=== PATIENT | male | born 1995 | race Caucasian/White ===

== ENCOUNTER 2021-11-10 15:16 | Emergency (ER) | payer OTHER, SELFPAY ==
[2021-11-10 15:22] VITALS: BP 138/70; PULSE 70; RESP 16; TEMP 37.1; O2SAT 100; BMI 28.5
--- NOTE | 2021-11-10 16:41 | ED_ITS ---
HPI - Wound/Laceration General Chief Complaint: Wound/Laceration Stated Complaint: lip forehead lac Time Seen by Provider: 11/10/21 16:41 Source: patient and RN notes reviewed Mode of arrival: ambulatory Limitations: no limitations History of Present Illness HPI narrative: Laceration to left forehead and left upper lip. occured greater than 12 hrs ago. pt slipped last night and hit head and lip on sharp part of car door. pt has mild MATIAS, but denies N/V, no LOC. Denies fever/chills Body four view annotation: 1. 2cm lac to left forehead 2. Related Data Previous Rx's Medication Instructions Recorded amoxicillin 875 mg-potassium 1 tab PO BID #14 tab 11/10/21 clavulanate 125 mg tablet (Augmentin) Allergies Allergy/AdvReac Type Severity Reaction Status Date / Time No Known Allergies Allergy Unverified 06/29/20 16:43 [No Known Allergies*] Review of Systems Verdana 4l Review of Systems: Verdana 4d Verdana 4d Constitutional , No Weight loss, No Fever, No Chills, ENT/Mouth : No Hearing loss, No Ear Pain, No Nasal Congestion, No Sinus Pain, No Hoarseness, No sore throat, No Rhinorrhea, No Swallowing Difficulty Cardiovascular : No Chest Pain, No SOBSOB Respiratory : No Cough, No Dyspnea Gastrointestinal : No Nausea, No Vomiting, No Diarrhea, No abdominal Pain, Genitourinary : No Dysuria, No Urinary Frequency, No Hematuria, No Urinary or Bowel Incontinence/retention? Musculoskeletal :No Back pain, No neck pain, No joint stiffness, No joint swelling Skin : lacerations to face Neuro : No Weakness, No radiation, No Numbness, No Paresthesias, mild headache, no loss of bowel or bladder incontinence, Psych : No SI/HI/thoughts of self injury Yes all other systems are reviewed and are negative [facility] Past Medical History Attestation statement: The following information was validated with the patient. Social History Social History Advance Directives: No Advance Directives Information Provided: No Physical Exam Verdana 4l Vital Signs: Verdana 4d Verdana 4d Vital Signs: Verdana 4d Verdana 4Bd Last Vital Signs Verdana 4d Flight Simulator Teacher New 4d Flight Simulator Teacher New 4d Temp 98.8 F 11/10/21 15:22 Flight Simulator Teacher New 4d Pulse 70 11/10/21 15:22 Teofilo Guerrero 4d Resp 16 11/10/21 15:22 BP 138/70 11/10/21 15:22 Pulse Ox 100 11/10/21 15:22 BMI result Body Mass Index 28.5 vital signs have been reviewed as normal and appeared to be correct.? Blood pressure mildy elevated.? Heart rate normal.? Respiration rate normal.? Temperature normal.? Oxygen saturation normal. Appearance: Alert. Oriented X3. No acute distress. ? Head: 3cm laceration to left forehead. 0.5cm left upper lip, does not cross the vermilion border. no active bleeding. No Dick signs noted. No raccoon eyes noted Eyes: PERRLA. EOMI. Conjunctiva and sclera normal. Eyelids normal. ? ENT: EAC normal. TMs Normal. Pharynx normal. Uvula midline. Moist mucous membranes. ? No trismus noted.? No drooling noted.? No muffled voice noted. small 2mm laceration to inside upper left lip Neck: Normal inspection. Neck supple. Normal ROM. No adenopathy. No meningeal signs. No neck mass noted. CVS: Normal heart rate and rhythm. Heart sound normal. No murmurs noted. Respiratory: No respiratory distress. Painless inspiration. Breath sounds normal. No wheezes/rales/rhonchi noted. Chest nontender. ? No accessory muscle usage noted or decreased air movement noted. Abdomen: Soft and nontender. Back: ?? Full range of motion noted. Skin: Skin warm and dry.? Normal skin color.? Normal skin turgor. No rashes/lesions/lacerations noted. Extremities: No lower extremity edema. ? Extremities exhibit normal range of motion.? Extremities nontender. Normal gait Neuro: Oriented X 3.? No motor deficit noted. No sensory deficit noted. Discharge Plan Discharge Clinical Impression: Laceration of forehead, Laceration of lip Patient Disposition: Home, Self-Care Instructions: Laceration Without Closure (ED), Facial Laceration (ED) Additional Instructions: Your lacerations were not sutured because they were greater than 12 hrs old. You are given a prescription for an antiobitic to help prevent infection of the laceration on the inside of your mouth. Follow up as needed. REturn if worse. Prescriptions: New amoxicillin-pot clavulanate [Augmentin] 875-125 mg tablet 1 tab PO BID Qty: 14 0RF Referrals: Physician,Unknown J [Primary Care Provider] - 2 days (pcp as needed) Interventions: ED Discharge Assessment Last Done: 11/10/21 17:06 Discharge Date/Time: 11/10/21 17:08
== END 2021-11-10 17:08 | disposition home or self-care (01) ==
PROVIDERS: Emergency Provider Emergency Medicine
DX: S01.81XA Laceration without foreign body of other part of head, initial encounter (principal); S01.511A Laceration without foreign body of lip, initial encounter; W01.198A Fall on same level from slipping, tripping and stumbling with subsequent striking against other object, initial encounter; Y93.89 Activity, other specified; Y92.810 Car as the place of occurrence of the external cause; Y99.9 Unspecified external cause status
CPT/HCPCS: 99283

== ENCOUNTER 2024-04-10 19:06 | Emergency (ER) | payer OTHER, SELFPAY ==
--- NOTE | ~2024-04-10 | XR_ITS ---
EXAMINATION: XR HAND/WRIST, LEFT CLINICAL INFORMATION: Rule out fracture. COMPARISON: None TECHNIQUE: PA, lateral, and oblique views of the left hand and wrist. FINDINGS: Examination demonstrates a mildly displaced, oblique fracture involving the mid diaphysis of the fourth metacarpal bone. There is also a mildly displaced, oblique fracture involving the distal metaphysis of the fifth metacarpal bone, probably extending to the ulnar aspect of the fifth MCP joint. Associated soft tissue swelling. No other fracture or dislocation is appreciated. Bony mineralization appears preserved. No lytic or sclerotic bony lesion is appreciated. The joint spaces otherwise appear maintained. XR/XR hand wrist LT IMPRESSION: Fractures of the fourth and fifth metacarpal bones.
[2024-04-10 19:19] VITALS: BP 123/72; PULSE 91; RESP 20; TEMP 36.6; O2SAT 99; BMI 24.3
[2024-04-10] MEDS: Ketorolac Tromethamine 30 MG/ML VIAL IM (21:48)
[2024-04-10 22:07] VITALS: BP 123/72; PULSE 91; RESP 20; TEMP 36.6; O2SAT 99
--- NOTE | 2024-04-10 22:12 | ED.EXTPRO ---
HPI - Extremity Problem General Chief complaint: Extremity Problem Stated complaint: left hand wound Time Seen by Provider: 04/10/24 21:18 Source: patient Mode of arrival: ambulatory Limitations: no limitations History of Present Illness ED Provider: Gómez HERNANDEZ HPI Narrative: 28-year-old male presents with complaints of left hand pain for the past hour so, patient hurt himself while playing baseball, after he does move his hand bent backwards since then has been having pain and swelling to his left 4th and 5th fingers. Worse with movement better at rest. No numbness or tingling. No previous issues with this hand. No other injuries sustained. Related Data Previous Rx's ?Medication ?Instructions ?Recorded amoxicillin 875 mg-potassium 1 tab PO BID #14 tabs 11/10/21 clavulanate 125 mg tablet (Augmentin) ketorolac 10 mg tablet 10 mg PO TID PRN pain 5 days #15 04/10/24 tabs Allergies Allergy/AdvReac Type Severity Reaction Status Date / Time No Known Allergies Allergy Verified 04/10/24 19:22 [No Known Allergies*] Review of Systems Review of Systems: Yes all other systems are reviewed and are negative [facility] Past Medical History Attestation statement: The following information was validated with the patient. Source: old records reviewed and nursing notes reviewed Social History Social History Smoked in Last 30 Days: No Advance Directives: No Advance Directives Information Provided: No Do you have a plan to hurt others: No Plan Physical Exam Vital Signs: Vital Signs: Last Vital Signs Temp 97.8 F 04/10/24 22:07 Pulse 91 04/10/24 22:07 Resp 20 04/10/24 22:07 BP 123/72 04/10/24 22:07 Pulse Ox 99 04/10/24 22:07 O2 Del Method Room Air 04/10/24 22:07 BMI result Body Mass Index 24.3 vss Appearance: Alert.? Oriented X3.? No acute distress.? Head: Normocephalic, atraumatic, no step-offs or deformities Eyes: Pupils equal, round and reactive to light.? ENT: Pharynx normal.? Neck: Normal inspection.? Neck supple.? CVS: Normal heart rate and rhythm.? Pulses normal.? Respiratory: No respiratory distress.? Breath sounds normal.? Abdomen: Soft and nontender.? Skin: Skin warm and dry.? Normal skin color.? Normal skin turgor.? Extremities: No lower extremity edema.? No calf ttp. 5/5 strength to bilateral upper and lower extremities+ swelling overlying the left 4th and 5th meta carpal region with some mild ecchymosis, full range of motion to all fingers however slight discomfort with range of motion of left 4th and 5th digits, mild discomfort with opposition and repositioning of the 4th and 5th fingers on the left hand. 2+ radial pulses. No wrist drop. Normal sensation distally. Capillary refill less than 2 seconds to bilateral upper extremities. 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 Neuro: Oriented X 3.? No motor deficit.? No sensory deficit. CN 2-12 intact Course Reevaluation(s) Reevaluation #1: Patient received Toradol for pain control. X-ray of left hand showing 4th and 5th metacarpal bone fractures. Patient placed in an ulnar gutter splint after placement of splint neurovascular status intact. Able to wiggle all fingers. Normal distal sensation. Patient will follow-up with the orthopedic team. Information given to him. Educated patient on diagnosis and treatment plan, answered all question, patient verbalizes understanding. At this time patient will be discharged home, advised to return with new or worsening symptoms. Educated on worrisome signs and symptoms and when to return. At this time I feel comfortable discharge home. Time: 22:15 Medications Administered Discontinued Medications Generic Name Dose Route Start Last Admin Trade Name Freq PRN Reason Stop Dose Admin Ketorolac Tromethamine 30 mg 04/10/24 21:38 04/10/24 21:48 Ketorolac Tromethamine 30 Mg/Ml Vial IM 04/10/24 21:39 30 mg ONCE ONE Administration Medical Decision Making Medical Decision Making [facility] Narrative: 28-year-old male presents with left hand pain status post baseball injury after his fingers bent backwards with sliding Physical exam 5/5 strength to bilateral upper and lower extremities+ swelling overlying the left 4th and 5th meta carpal region with some mild ecchymosis, full range of motion to all fingers however slight discomfort with range of motion of left 4th and 5th digits, mild discomfort with opposition and repositioning of the 4th and 5th fingers on the left hand. 2+ radial pulses. No wrist drop. Normal sensation distally. Capillary refill less than 2 seconds to bilateral upper extremities. 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 History and physical exam concerning for fracture in/dislocation of left 4th and 5th metacarpals. Unlikely neurovascular compromise, acute threat to limb. No signs of compartment syndrome arterial or venous occlusion Plan imaging Differential Diagnosis Differential Diagnoses: The differential diagnosis associated with the presentation includes History and physical exam concerning for fracture in/dislocation of left 4th and 5th metacarpals. Unlikely neurovascular compromise, acute threat to limb. No signs of compartment syndrome arterial or venous occlusion Admission/Observation Consideration of admission/observation: Escalation of care including admission/observation considered Independent Interpretation I performed an independent interpretation of an: Plain X-Ray (XR/XR hand wrist LT IMPRESSION: Fractures of the fourth and fifth metacarpal bones.) Radiology Impression Discussion of test interpretation with radiology: I have reviewed the radiologist's reading. Discharge Plan Discharge Clinical Impression: Fracture of metacarpal Patient Disposition: Home, Self-Care Instructions: Hand Fracture (ED) Additional Instructions: Take your medications as prescribed. If you were prescribed antibiotics today, it is important that you take your medication to their entirety, do not skip any doses, do not finish them early. Follow-up with your primary care provider this week. Return to the emergency department with new or worsening symptoms. Such as fevers, chills, chest pain, shortness of breath, nausea, vomiting, dizziness, headache, vision changes, lethargy In case of emergency call 911 Please follow-up with the orthopedic team Keep your splint dry, intact. Return with new or worsening symptoms such as severe swelling, changes in skin color or severe pain. Toradol has been sent to your pharmacy, you tolerated this well in the department. Please take this as prescribed do not take this with ibuprofen, or other NSAIDs, do not mix this with alcohol. Side effects of this medication including increased risk for bleeding and possible kidney injury. XR/XR hand wrist LT IMPRESSION: Fractures of the fourth and fifth metacarpal bones. Prescriptions: New ketorolac 10 mg tablet 10 mg PO TID PRN (Reason: pain) 5 Days Qty: 15 0RF No Action amoxicillin-pot clavulanate [Augmentin] 875-125 mg tablet 1 tab PO BID Qty: 14 0RF [place] [facility] [place] Group] - 2 days Stand Alone Forms: Work/School Release Interventions: ED Discharge Assessment Last Done: 04/10/24 22:07 Discharge Date/Time: 04/10/24 22:09 Print Language: Senegalese
== END 2024-04-10 22:09 | disposition home or self-care (01) ==
PROVIDERS: Emergency Provider Emergency Medicine
DX: S62.395A Other fracture of fourth metacarpal bone, left hand, initial encounter for closed fracture (principal); S62.397A Other fracture of fifth metacarpal bone, left hand, initial encounter for closed fracture; X50.9XXA Other and unspecified overexertion or strenuous movements or postures, initial encounter; Y93.64 Activity, baseball; Y92.9 Unspecified place or not applicable; Y99.9 Unspecified external cause status
CPT/HCPCS: 29125; 73110; 73130; 96372; 99284; J1885

== ENCOUNTER 2024-04-13 09:32 | Outpatient (REF) | payer SELFPAY ==
--- NOTE | ~2024-04-13 | XR_ITS ---
EXAMINATION: XR HAND, LEFT CLINICAL INFORMATION: Fracture follow-up COMPARISON: Radiographs 04/10/2024 TECHNIQUE: PA, lateral, and oblique views of the left hand. FINDINGS: No significant change in the appearance or alignment of the 4th and 5th metacarpal fractures. Intra-articular extension with slight surface depression at the 5th metacarpal head. No osseous bridging is evident. XR/XR hand LT min 3V IMPRESSION: No significant change in the appearance or alignment of the 4th and 5th metacarpal fractures.
== END 2024-04-13 09:33 | disposition home or self-care (01) ==
LOC: HO.HOSX 09:32
PROVIDERS: Visit Provider Orthopaedic Surgery
DX: M79.642 Pain in left hand (principal)
CPT/HCPCS: 73130

== ENCOUNTER 2024-04-13 10:01 | Outpatient (AMB) | payer OTHER, SELFPAY ==
--- NOTE | 2024-04-13 10:04 | A.OFFVIS_ITS ---
Vital Signs 04/13/24 10:11 Height 5 ft 8 in Weight 165 lb BMI 25.1 Handedness Right Intake Visit Reasons: FC, L hand 4th, 5th metacarpal bone fx Intake Note: Young is a 28 year old right hand dominant male who presents today s/p left hand fractures of the fourth and fifth metacarpal, DOI 04/10/24. Patient states he was playing baseball on 04/10/24 when he dove to catch the ball and his glove got caught in the grass and bent his hand backward, since this injury he has been having pain. He expresses at the time of his injury he heard a pop followed but extreme pain, he is currently feeling soreness but feels improvement in the pain. His middle finger is bruised and his pain and swelling is mainly in the pinky and ring finger. [place] [facility] [place] for this injury and placed in a splint. He expresses his pain is worse with movement of his fingers. Denies pain in the wrist, numbness and tingling. Allergies No Known Allergies [No Known Allergies*] Allergy (Verified 04/13/24 10:15) HPI HPI FC, L hand 4th, 5th metacarpal bone fx: Details: Young is a 28 year old right hand dominant man who presents for a left 4th & 5th metacarpal fracture, DOI: 04/10/24 when playing Softball. He is seen today with his mother. 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 He complains of pain primarily in the ulnar aspect of his hand, worse with movement. He also complains of some pain & bruising to He denies any pain in his wrist. He denies any numbness or tingling. He is seen today in a splint, which he says is not very comfortable. 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 He is concerned about missing work and not having sick leave/PTO. He is planning on going to the beach this weekend. He has asthma & says he smokes . 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 Review of Systems Const All systems reviewed & are unremarkable except as noted in HPI and below Physical Exam Vital Signs: BMI result Body Mass Index 25.1 Const General: cooperative, healthy appearing and no acute distress Orientation/consciousness: patient oriented x3 HEENT Head: Yes normocephalic and Yes atraumatic Eyes EOM: EOMs intact bilaterally Resp Effort & Inspection: normal respiratory effort and able to speak in complete sentences Cardio Jugular venous distension: no JVD Skin General skin exam: turgor normal Rashes: no rashes Neuro General: patient oriented x3 Extrem Other: Evaluation of Left Upper Extremity: The patient is alert, oriented, and in no acute distress Neuro: Median, Ulnar, Radial nerves motor and sensory intact and sensation is normal to the tips of all digits Vascular: Cap refill brisk ROM: He can bring his fingers into extension and then close them towards a fist. No appreciable malrotation. He does have some swelling and ecchymosis that appears to be resolving. No lacerations or evidence of open injury Good sensation to the tips of all digits He has tender over the 4th and 5th metacarpals. Skin: No lacerations or abrasions. Radiographs: 3 views of the left hand were taken and viewed by me today in clinic. They show a spiral oblique fracture of the 4th metacarpal shaft, with shortening, & a comminuted spiral oblique fracture of the 5th metacarpal shaft extending into distal articular surface with shortening & step-off in the distal articular surface. No other fractures seen. Psych Appearance: grossly normal Affect: normal affect Attitude: cooperative Assessment & Plan Assessment & Plan (1) Fracture of shaft of fourth metacarpal bone of left hand: Code(s): S62.325A - Displaced fracture of shaft of fourth metacarpal bone, left hand, initial encounter for closed fracture Category: Medical (2) Fracture of shaft of fifth metacarpal bone of left hand: Code(s): S62.327A - Displaced fracture of shaft of fifth metacarpal bone, left hand, initial encounter for closed fracture Category: Medical Plan Assessment & Plan: 1. Left 4th metacarpal shaft fracture, spiral, oblique With shortening DOI: 04/10/24 playing Softball 2.Left 5th metacarpal shaft fracture, spiral, oblique, comminuted Extending into the distal articular surface with shortening & step-off DOI: 04/10/24 playing Softball I educated him & his mother about these conditions I discussed operative and non-operative treatment options The patient would like to proceed with surgery He was fitted for a finger spica splint to be worn until his. The risks and benefits of operative treatment were discussed with the patient and the patient wishes to proceed with surgery. These risks include, but are not limited to risk of damage to blood vessels, nerves, tendons, infection, recurrence, incomplete relief of preoperative symptoms, persistent pain, possible need for further surgery and the risks associated with regional blocks and anesthesia. The plan is to take the patient to the operating room sometime on 04/19/24 for the following procedures: 1. Left 4th metacarpal shaft closed vs open reduction internal fixation under general 2. Left 5th metacarpal shaft closed vs open reduction internal fixation under general All of the preoperative paperwork including the consent was reviewed today. All the patient's questions were answered. The patient understands that they will be contacted by our sustainable communities designer soon to schedule this procedure He denies Diabetes, blood thinners, heart, lung, kidney issues He has asthma & says he smokes cigarettes, marijuana, and vapes. I explained the effects of smoking on bone healing and recommend he stop smoking or vaping until after he has healed. He expressed understanding. Scribed for Alexandria Hinton MD by Vince Vang, biomedical engineering director, on 04/13/24 at 10:35 AM, EST. Orders: Orders XR hand LT min 3V Today M79.642 - Pain in left hand Medications: Discontinued amoxicillin-pot clavulanate 875-125 mg (Augmentin) Discontinued Reason: Patient no longer taking 1 tab PO BID 14 tabs 0RF Coding Level of Care Code New Pt Level 4 (62568) Diagnoses Fracture of shaft of fourth metacarpal bone of left hand S62.325A Fracture of shaft of fifth metacarpal bone of left hand S62.327A
[2024-04-13 10:11] VITALS: BMI 25.1
== END 2024-04-13 11:10 | disposition home or self-care (01) ==
PROVIDERS: Visit Provider Orthopaedic Surgery
DX: S62.325A Displaced fracture of shaft of fourth metacarpal bone, left hand, initial encounter for closed fracture (principal); S62.327A Displaced fracture of shaft of fifth metacarpal bone, left hand, initial encounter for closed fracture
CPT/HCPCS: 99204

== ENCOUNTER 2024-04-19 07:09 | Day surgery (SDC) | payer OTHER, SELFPAY ==
[2024-04-19] VITALS (7 sets, daily range): BP systolic 126–141; BP diastolic 69–77; PULSE 51–88; RESP 14–20; TEMP 36.1–36.4; O2SAT 97–99; BMI 25.1
--- NOTE | ~2024-04-19 | FL_ITS ---
EXAMINATION: XR FLUOROSCOPY WITH IMAGES CLINICAL INFORMATION: Pain left hand. COMPARISON: Hand radiographs 04/13/2024. TECHNIQUE: Fluoroscopy Supervised By: Dr. Alexandria Hinton. Fluoroscopy Time: 109.44 seconds. Cumulative Dose: 2.9998 mGy. DAP: 0.1813 Gycm2. Images: 10. FINDINGS: Intraoperative fluoroscopy and spot films were performed during a procedure in the OR. Again seen are spiral fractures through the fourth and fifth metacarpal. A pin has been placed through the fourth metacarpal with 3 additional pins extending horizontally through what appear to be the third through fifth distal metacarpals. Please correlate with Dr. Valerio's report for complete details. FL/FL guidance in OR IMPRESSION: Intraoperative fluoroscopy and spot films were obtained. Please see Dr. Valerio's report for complete details.
--- NOTE | 2024-04-19 07:28 | PC.NURSE ---
pt unwrapped krystal wrap +pulses good cms denies numbness
--- NOTE | 2024-04-19 07:32 | PC.NURSE ---
scopolamine patch applied to right ear for hx postop n/v and acetaminophen 1000mg taken out per anesthesia
--- NOTE | 2024-04-19 07:34 | MHC.SHP ---
Pre-Procedural Eval Section A - 24 Hr Update-Section A only Date of Service: 04/19/24 The patient is an INPATIENT: No Changes since office visit: No Cold of Flu in the past 2 weeks, No New Medical Problems, No Changes in Medication and No Patient answered all questions The patient has been examined within 24 hours of the surgical procedure. The History & Physical has been completed within 30 days and I have reviewed it.: Yes Section B - Complete if H&P > 30 days Chief Complaint: displaced fx of 4th and 5th finger Allergies: Allergies Allergy/AdvReac Type Severity Reaction Status Date / Time No Known Allergies Allergy Verified 04/13/24 10:15 [No Known Allergies*] Plan I have reviewed the history and physical and performed a pertinent physical examination on my patient. No changes have occurred unless specified. Time Spent With Patient Time: Total time managing care of this patient today ____ minutes.
--- NOTE | 2024-04-19 07:35 | P.OP_ITS ---
Operative Note Operative Note Date of Service: 04/19/24 Narrative: Operative Note Narrative: Preop diagnosis: 1. Left 4th Metacarpal shaft fracture 2. Left 5th metacarpal shaft and intra-articular metacarpal head fracture Postop diagnosis: Same Procedure: 1. Left 5th metacarpal intra-articular head fracture, shaft extension closed reduction percutaneous pinning 2. Left 4th Metacarpal shaft fracture closed reduction percutaneous pinning 2. Ulnar nerve block Surgeon: Alexandria Hinton MD Anesthesia: General Anesthesia Findings: Metacarpal fracture Implants: 0.062 K-wires times 1, 0.045 K-wire x3 Tourniquet time: None EBL: Minimal Specimen: None Drains: None Complications: None Disposition: Brought to the recovery room in stable condition Plan: Follow-up in 10-14 days for a wound check, postop radiographs and for placement in a short-arm finger spica cast Anticipate K-wire removal at 4-5 weeks postop based on interval bony healing Educate the patient that full fracture healing anticipated in approximately 8-12 weeks. Indications: The patient is 28 years old with a left 4th metacarpal shaft fracture, and a left 5th metacarpal intra-articular head fracture extending into the shaft with an intra-articular step-off. . The risks and benefits of operative treatment, including but not limited to risk of damage to blood vessels, nerves, tendons, infection, recurrence, delayed or nonunion of fracture, persistent pain or numbness, incomplete resolution of preoperative symptoms, or need for further surgery were discussed with the patient and they wished to proceed with surgery. Procedure: Once consent was obtained patient was brought back to the operating suite and placed in the operating table in a supine position. . Perioperative antibiotics and general anesthesia was administered by the anesthesia team. A tourniquet was applied to the proximal aspect of the left upper extremity and the limb was prepped and draped in a standard surgical fashion. Tourniquet was not inflated during the case. The FluoroScan was used during the case to assist with our fracture reduction and placement of all implants. A closed reduction was performed on the patient's left 4th metacarpal shaft fracture. I 1st placed a 0.045 K-wire transversely across the 4th metacarpal head into the 3rd metacarpal head holding it out to length. I placed a single 0.062 K-wire retrograde through the head of the 4th metacarpal extending proximally across the fracture site to the base of the metacarpal. The transverse K-wire was then removed and the finger assess for rotational malalignment and corrected. My attention was then turned to the 5th metacarpal intra-articular head fracture. This was also a spiral oblique fracture extending into the shaft. A closed reduction was performed and a 0.045 K-wire was placed obliquely from the ulnar aspect of the neck extending across the fracture site and distally to the more radial fracture fragment. This improved our intra-articular step-off to less than a half a mm. A 2nd 0.045 K-wire was then placed transversely from the lateral aspect of the 5th metacarpal neck extending across the fracture site and then through the neck of the 4th metacarpal and into the neck of the 3rd me tacarpal stabilizing both the 4th and 5th out to length. A 3rd 0.045 K-wire was added obliquely from the lateral aspect of the 5th metacarpal across the fracture site and extending into the 4th metacarpal neck. Fracture alignment was assessed for both angular and rotational malalignment. Once satisfied with our fracture reduction and implant placement, the K-wires were bent and cut short and pin caps applied. Final fluoroscopic images were then obtained. The wounds were copiously irrigated with normal saline. An ulnar nerve block was then performed by infiltrating about the ulnar nerve at the wrist with some 1% lidocaine with epinephrine for postop pain control. A Sterile dressing and short volar splint was applied. The patient appears to have tolerated the procedure well and with no complications. All digits were well vascularized at the conclusion of the case.
[2024-04-19] MEDS: Lactated Ringers 1,000 ML 100 ML IVCONT (07:41)
[2024-04-19] MEDS: Scopolamine 1.5 MG PATCH.TD.3 TRANSDERMA (07:41)
--- NOTE | 2024-04-19 07:41 | HO.ANESPROP2 ---
HPI - Anesthesia Eval Consult details Narrative: for left metacarpal fracture reduction [facility] Active Problems Active Problems: All Active Problems (Updated 04/19/24 @ 07:27 by Thelma Edwards RN) Fracture of shaft of fifth metacarpal bone of left hand (Acute) Fracture of shaft of fourth metacarpal bone of left hand (Acute) Past Medical History Medical History History of postoperative nausea and vomiting History of postoperative nausea Family History Family history of problems with anesthesia: No Surgical History Surgical History (Updated 04/19/24 @ 07:27 by Thelma Edwards RN) Hx of shoulder surgery History of Problems with Anesthesia: No Social History Social History (Updated 04/13/24 @ 10:17 by NAYA Quiles) Alcohol intake: current Alcohol intake frequency: holidays/special occasions only Patient Tobacco Use Status: Former Tobacco user Substance Use Type: Marijuana Substance Use Frequency: Chronic Longstanding Are you DNR?: No Advance Directives: No Advance Directives Information Provided: Yes Nutrition Risks: No Nutritional Risk service: No Current occupational status: employed 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 [employer] Allergies Allergy/AdvReac Type Severity Reaction Status Date / Time No Known Allergies Allergy Verified 04/13/24 10:15 [No Known Allergies*] Active Medications: Current Medications Fentanyl (Fentanyl Citrate/Pf 100 Mcg/2 Ml Vial) 25 mcg IVPUSH Q5M PRN PRN Reason: Pain, Moderate(Pain Scale 4-6) Stop: 04/19/24 13:39 Lactated Ringer's (Lr) 1,000 mls @ 100 mls/hr IVCONT .Q10H NATA Acetaminophen (Ofirmev) 1,000 mg in 100 mls @ 400 mls/hr IV PREOP ONE Stop: 04/19/24 07:52 Ondansetron HCl (Ondansetron Hcl 4 Mg/2 Ml Vial) 4 mg IVPUSH ONCE PRN PRN Reason: Nausea and Vomiting Stop: 04/19/24 13:39 Exam Height,Weight and Vital Signs: Height 5 ft 8 in Weight 74.843 kg Last Vital Signs Temp 97.5 F 04/19/24 07:16 Pulse 54 04/19/24 07:16 Resp 20 04/19/24 07:16 BP 138/77 04/19/24 07:16 Pulse Ox 98 04/19/24 07:16 O2 Del Method Room Air 04/19/24 07:16 Airway Mallampati Class: II TM Dist: >3cm Neck ROM: Full Heart: rrr Lungs: cta Assessment and Plan Assessment Anesthesia Assessment: Anesthesia Plan Discussed and Smoking Cess. Discussed Final Anesthetic Review Family History of Problems with Anesthesia: No History of Problems with Anesthesia: No NPO: Yes ASA Class: II (asthma, pot use) Final Preanesthetic Review: No Changes in Pt Med Stat, Meds/Allgs Chart Reviewed, Consent Obtained/Reviewed and Anes Risks/Benef Reviewed Patient Risk: Low Procedure Risk: Low Anesthetic Plan Anesthetic Plan: GA Disposition: Standard PACU
[2024-04-19] MEDS: Acetaminophen 1,000 MG/100 ML PIGGYBACK 400 MG IV (08:40)
[2024-04-19] MEDS: fentaNYL citrate/PF 100 MCG/2 ML VIAL 25 MCG IVPUSH (09:45)
== END 2024-04-19 10:59 | disposition home or self-care (01) ==
PROVIDERS: Visit Provider Orthopaedic Surgery
PROC: (CPT 26615; principal; 2024-04-19 08:30)
DX: S62.325A Displaced fracture of shaft of fourth metacarpal bone, left hand, initial encounter for closed fracture (principal); S62.327A Displaced fracture of shaft of fifth metacarpal bone, left hand, initial encounter for closed fracture; X50.1XXA Overexertion from prolonged static or awkward postures, initial encounter; Y93.64 Activity, baseball; Y92.9 Unspecified place or not applicable; Y99.8 Other external cause status; J45.909 Unspecified asthma, uncomplicated; F17.210 Nicotine dependence, cigarettes, uncomplicated; F17.290 Nicotine dependence, other tobacco product, uncomplicated
CPT/HCPCS: 26608 ×2; J0131; J0690; J1100; J1885; J2250; J2405; J2704; J2795; J3010

== ENCOUNTER → 2024-04-19 07:09 | Outpatient (BNV) | payer OTHER, SELFPAY | PROVIDERS: Visit Provider Orthopaedic Surgery | DX: S62.327A Displaced fracture of shaft of fifth metacarpal bone, left hand, initial encounter for closed fracture (principal); S62.325A Displaced fracture of shaft of fourth metacarpal bone, left hand, initial encounter for closed fracture | CPT/HCPCS: 26727 ==

== ENCOUNTER 2024-04-28 07:51 | Outpatient (REF) | payer OTHER, SELFPAY ==
--- NOTE | ~2024-04-28 | XR_ITS ---
EXAMINATION: XR HAND, LEFT CLINICAL INFORMATION: Pain in the left hand. COMPARISON: Multiple prior radiographs including intraoperative imaging 04/19/2024. TECHNIQUE: 3 views of the left hand. FINDINGS: Multiple K wires noted overlying the third, fourth and fifth metacarpals, unchanged compared with the intraoperative images, related to orthopedic fixation of fourth and fifth metacarpal fractures. Alignment unchanged compared with the intraoperative images. No new bone, joint or soft tissue abnormality. XR/XR hand LT min 3V IMPRESSION: Orthopedic fixation of fourth and fifth metacarpal fractures. No change compared with the intraoperative images.
== END 2024-04-28 07:52 | disposition home or self-care (01) ==
LOC: HO.HOSX 07:51
DX: M79.642 Pain in left hand (principal)
CPT/HCPCS: 73130

== ENCOUNTER 2024-04-28 14:45 | Outpatient (AMB) | payer OTHER, SELFPAY ==
--- NOTE | 2024-04-28 14:51 | MHC.OFFVIS ---
Intake Visit Reasons: PO LT 4th 5th MC CRPP vs ORIF 04/19/24 AR Intake Note: Young is a 28 year old right hand dominant male who presents post operatively S/P Left 4th & 5th metacarpal CRPP 04/19/24 w AR. Patient reports the first week was painful but it is improving. He has pain if he accidentally bumps his fingers. He has concern with finger movement and wants to know when could he expect the movement to return. Allergies No Known Allergies [No Known Allergies*] Allergy (Verified 04/28/24 15:10) HPI HPI PO LT 4th 5th MC CRPP vs ORIF 04/19/24 AR: Details: Young is a 28 year old right hand dominant man who returns S/P left 4th & 5th metacarpal CRPP, DOS: 04/19/24. DOI: 04/10/24 when playing Softball. He is seen today with his mother. 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 He says he is doing well, with some pain when he bumps his fingers and stiffness in his fingers. He wants to know when he can expect his motion to return. Patient expresses that he feels he has adequate range of motion in his left thumb, index finger, middle finger, but reports stiffness in his left ring finger and small finger. Patient inquires if this is normal with his procedure. He denies any numbness or tingling. 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 The patient reports that his job has been able to accommodate him with light duty and a strict weight restriction, and that he has avoided getting his splint and dressing dirty. He has asthma & says he smokes . 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 No ecchymosis noted Very mild edema over the 4th and 5th metacarpals Patient reports tenderness to palpation of the proximal phalanx of both the left small and ring fingers Sensation is intact Cap refill is brisk Radiographs: 3 views of the left hand were taken and viewed by me today in clinic. They show a spiral oblique fracture of the 4th metacarpal shaft, with satisfactory fracture alignment & position of K-wires. They also show a comminuted spiral oblique fracture of the 5th metacarpal shaft extending into distal articular surface with satisfactory fracture alignment & position of K-wires. Psych Appearance: grossly normal Affect: normal affect Attitude: cooperative Results Reviewed Results Reviewed: X-rays obtained in the office today and independently reviewed by me, Mat Mccloud PA-C, demonstrate spiral fractures of both the 4th and 5th metacarpals, with pins in place and satisfactory clinical alignment, no change from intra operative x-rays. Assessment & Plan Assessment & Plan (1) Fracture of shaft of fourth metacarpal bone of left hand: Code(s): S62.325A - Displaced fracture of shaft of fourth metacarpal bone, left hand, initial encounter for closed fracture Category: Medical (2) Fracture of shaft of fifth metacarpal bone of left hand: Code(s): S62.327A - Displaced fracture of shaft of fifth metacarpal bone, left hand, initial encounter for closed fracture Category: Medical Plan Assessment & Plan: 1. Left 4th metacarpal shaft fracture, spiral, oblique, S/P CRPP DOI: 04/10/24 playing Softball DOS: 04/19/24 2. Left 5th metacarpal shaft fracture, spiral, oblique, comminuted, S/P CRPP Extending into the distal articular surface with shortening & step-off DOI: 04/10/24 playing Softball DOS: 04/19/24 The patient appears to be doing well post-operatively I educated him about the post-operative course I explained the signs and symptoms of infection, if the patient develops any new or worsening erythema, drainage, pain, or warmth they should contact the clinic or attend the ED. He was placed in a short arm finger spica cast, to be worn for the next 3 weeks I discussed activity modifications, he is to lift nothing heavier than a cellphone for at least the next 3 weeks Patient is given a work note stating this, and is told that if his job has any questions as to what his restrictions are they can feel free to give the office a call He will perform gentle ROM exercises at home He should avoid any underwater activities at this time He has asthma & says he smokes cigarettes, marijuana, and vapes. I explained the effects of smoking on bone healing and recommend he stop smoking or vaping until after he has healed. He expressed understanding. He will follow up in 3 weeks, with X-rays 3V attn L RF & SF Anticipate K-wire removal depending on bony healing, and perhaps a referral to OT hand therapy. Scribed for HERMES Strauss by Vince Vang, clinical medical transcriptionist, on 04/28/24 at 3:15 PM, EST. Orders: Orders XR hand LT min 3V Today M79.642 - Pain in left hand Scribe Plan - Not visible on output: Scribed for Alexandria Hinton MD by Vince Vang, clinical medical transcriptionist, on [ ] at [ ], EST. Coding Level of Care Code Global (20118) Diagnoses Fracture of shaft of fourth metacarpal bone of left hand S62.325A Fracture of shaft of fifth metacarpal bone of left hand S62.327A
== END 2024-04-28 16:12 | disposition home or self-care (01) ==
DX: S62.325A Displaced fracture of shaft of fourth metacarpal bone, left hand, initial encounter for closed fracture (principal); S62.327A Displaced fracture of shaft of fifth metacarpal bone, left hand, initial encounter for closed fracture
CPT/HCPCS: 99024

== ENCOUNTER 2024-05-19 09:19 | Outpatient (REF) | payer OTHER, SELFPAY ==
--- NOTE | ~2024-05-19 | XR_ITS ---
EXAMINATION: XR HAND, LEFT CLINICAL INFORMATION: Left hand pain. COMPARISON: Left hand 04/28/2024. TECHNIQUE: 3 views of the left hand. FINDINGS: Again seen are multiple K-wires overlying the third, fourth and fifth metacarpals, unchanged compared with the prior images, related to orthopedic fixation of fourth and fifth metacarpal fractures. There is some minimal indistinctness of the fragment edges indicating some possible healing. There is no bony fusion at this time. Alignment unchanged compared with the intraoperative images. XR/XR hand LT min 3V IMPRESSION: Orthopedic fixation of fourth and fifth metacarpal fractures. No significant change compared to the prior study. Electronically signed by: Ben Wu MD 06/17/2024 09:58 PM EDT
== END 2024-05-19 09:20 | disposition home or self-care (01) ==
LOC: HO.HOSX 09:19
PROVIDERS: Visit Provider Orthopaedic Surgery
DX: M79.642 Pain in left hand (principal); S62.305D Unspecified fracture of fourth metacarpal bone, left hand, subsequent encounter for fracture with routine healing; S62.307D Unspecified fracture of fifth metacarpal bone, left hand, subsequent encounter for fracture with routine healing; Z98.890 Other specified postprocedural states
CPT/HCPCS: 73130

== ENCOUNTER 2024-05-19 12:09 | Outpatient (AMB) | payer OTHER, SELFPAY ==
--- NOTE | 2024-05-19 12:28 | A.OFFVIS_ITS ---
Intake Visit Reasons: PO LT 4th 5th MC CRPP 04/19/24 Intake Note: Young is a 28 year old right hand dominant male who presents post operatively S/P Left 4th & 5th metacarpal CRPP 04/19/[address] Hinton. Patient reports he feels much better today compared to day one . He is no longer taking pain medication, but did take Ibuprofen for about 1.5 wks. Patient reports no concerns today. Allergies No Known Allergies [No Known Allergies*] Allergy (Verified 04/28/24 15:10) HPI HPI PO LT 4th 5th MC CRPP 04/19/24: Details: Young is a 28 year old right hand dominant man who returns S/P left 4th & 5th metacarpal CRPP, DOS: 04/19/24. DOI: 04/10/24 when playing Softball. He is seen today with his mother. 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 He says he is doing well, and denies any pain. He denies any numbness or tingling. 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 The patient reports that his job has been able to accommodate him with light duty and a strict weight restriction, and that he has avoided getting his splint and dressing dirty. He has asthma & says he smokes . 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 K-wires removed today, which he tolerated fairly well, with some lightheadedness that resolved before he left. Fractures were nontender today. Very stiff in the small and ring fingers after being in a finger spica cast, as expected Some mild stiffness in the wrist Sensation is intact Cap refill is brisk Radiographs: 3 views of the left hand were taken and viewed by me today in clinic. They show a spiral oblique fracture of the 4th metacarpal shaft, with satisfactory fracture alignment & position of K-wires. They also show a comminuted spiral oblique fracture of the 5th metacarpal shaft extending into distal articular surface with satisfactory fracture alignment & position of K-wires. Psych Appearance: grossly normal Affect: normal affect Attitude: cooperative Assessment & Plan Assessment & Plan (1) Fracture of shaft of fourth metacarpal bone of left hand: Code(s): S62.325A - Displaced fracture of shaft of fourth metacarpal bone, left hand, initial encounter for closed fracture Category: Medical (2) Fracture of shaft of fifth metacarpal bone of left hand: Code(s): S62.327A - Displaced fracture of shaft of fifth metacarpal bone, left hand, initial encounter for closed fracture Category: Medical Plan Assessment & Plan: 1. Left 4th metacarpal shaft fracture, spiral, oblique, S/P CRPP DOI: 04/10/24 playing Softball DOS: 04/19/24 K-wires removed: 05/19/24 2. Left 5th metacarpal shaft fracture, spiral, oblique, comminuted, S/P CRPP Extending into the distal articular surface with shortening & step-off DOI: 04/10/24 playing Softball DOS: 04/19/24 K-wires removed: 05/19/24 The patient appears to be doing well post-operatively I educated him about the post-operative course He was fitted for a velcro wrist splint, to be worn with daily activity & out of the house for the next 4 weeks He will remove his splint when at home & at rest, or to work on ROM exercises I discussed activity modifications, he is to lift nothing heavier than a cellphone for at least the next 3 weeks I ordered OT hand therapy to work on gentle ROM exercises. He should avoid any underwater activities for the next 5 days He has asthma & says he smokes cigarettes, marijuana, and vapes. I explained the effects of smoking on bone healing and recommend he stop smoking or vaping until after he has healed. He expressed understanding. 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 He will follow up in 2 weeks for a ROM check. Scribed for Alexandria Hinton MD by Vince Vang, medical logistics specialist, on 05/19/24 at 12:50 PM, EST. Orders: Orders OT Evaluation and Treatment Today S62.325A - Displaced fracture of shaft of fourth metacarpal bone, left hand, initial encounter for closed fracture, S62.327A - Displaced fracture of shaft of fifth metacarpal bone, left hand, initial encounter for closed fracture XR hand LT min 3V Today M79.642 - Pain in left hand Coding Level of Care Code Global (76907) Diagnoses Fracture of shaft of fourth metacarpal bone of left hand S62.325A Fracture of shaft of fifth metacarpal bone of left hand S62.327A
== END 2024-05-19 13:50 | disposition home or self-care (01) ==
PROVIDERS: Visit Provider Orthopaedic Surgery
DX: S62.325A Displaced fracture of shaft of fourth metacarpal bone, left hand, initial encounter for closed fracture (principal); S62.327A Displaced fracture of shaft of fifth metacarpal bone, left hand, initial encounter for closed fracture
CPT/HCPCS: 99024

== ENCOUNTER 2024-06-02 12:33 | Outpatient (AMB) | payer OTHER, SELFPAY ==
--- NOTE | 2024-06-02 12:37 | MHC.OFFVIS ---
Vital Signs 06/02/24 13:14 Height 5 ft 8 in Weight 165 lb BMI 25.1 Intake Visit Reasons: PO LT 4th 5th MC CRPP 04/19/24 Intake Note: Young is a 28 year old right hand dominant male who presents post operatively S/P Left 4th & 5th metacarpal CRPP 04/19/[address] Hinton. Patient reports he was never called to start OT however patient wishes to do a few sessions so he knows what he should be doing at home. Reports there is no pain but does report soreness on the left pinky. Patient reports no major concern today. Allergies No Known Allergies [No Known Allergies*] Allergy (Verified 06/02/24 13:13) HPI HPI PO LT 4th 5th MC CRPP 04/19/24: Details: Young is a 28 year old right hand dominant man who returns for a ROM check, S/P left 4th & 5th metacarpal CRPP, DOS: 04/19/24. DOI: 04/10/24 when playing Softball. He is seen today with his mother. 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 He says he is doing well, and denies any pain. He denies any numbness or tingling. He has been working on ROM exercises at home. He has not yet been contacted by OT hand therapy. 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 The patient reports that his job has been able to accommodate him with light duty and a strict weight restriction, and that he has avoided getting his splint and dressing dirty. He has asthma & says he smokes. 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 Fractures were nontender today. He can make a fist with good strength and extend all his digits He has an ~10 degree extensor lag at the ring finger MCP joint He has an ~5 degree extensor lag at the small finger MCP joint Sensation is intact Cap refill is brisk Psych Appearance: grossly normal Affect: normal affect Attitude: cooperative Assessment & Plan Assessment & Plan (1) Fracture of shaft of fourth metacarpal bone of left hand: Code(s): S62.325A - Displaced fracture of shaft of fourth metacarpal bone, left hand, initial encounter for closed fracture Category: Medical (2) Fracture of shaft of fifth metacarpal bone of left hand: Code(s): S62.327A - Displaced fracture of shaft of fifth metacarpal bone, left hand, initial encounter for closed fracture Category: Medical Plan Assessment & Plan: 1. Left 4th metacarpal shaft fracture, spiral, oblique, S/P CRPP DOI: 04/10/24 playing Softball DOS: 04/19/24 K-wires removed: 05/19/24 2. 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 Coding Level of Care Code Global (35866) Diagnoses Fracture of shaft of fourth metacarpal bone of left hand S62.325A Fracture of shaft of fifth metacarpal bone of left hand S62.327A
[2024-06-02 13:14] VITALS: BMI 25.1
== END 2024-06-02 13:31 | disposition home or self-care (01) ==
PROVIDERS: Visit Provider Orthopaedic Surgery
DX: S62.325A Displaced fracture of shaft of fourth metacarpal bone, left hand, initial encounter for closed fracture (principal); S62.327A Displaced fracture of shaft of fifth metacarpal bone, left hand, initial encounter for closed fracture
CPT/HCPCS: 99024

== ENCOUNTER → 2024-06-02 12:33 | Outpatient (BNVA) | payer OTHER, SELFPAY | PROVIDERS: Visit Provider Orthopaedic Surgery ==